=== PATIENT | female | born 1970 | race Caucasian/White ===

== ENCOUNTER → 2020-08-03 16:25 | Outpatient (CLI) | payer OTHER, SELFPAY ==
--- NOTE | ~2020-08-03 | XR_ITS ---
EXAMINATION: XR foot RT min 3V DATE: 08/03/2020 16:41 INDICATION: Pain at the plantar aspect of the heel of the right foot TECHNIQUE: Dorsoplantar, two oblique and lateral views of the right foot were obtained. COMPARISON: None. FINDINGS: Bone alignment is normal. No fracture. Plantar calcaneal spur and adjacent separate smoothly corticat ed triangular enthesopathic ossicle. Mild osteoarthritis at the first metatarsophalangeal joint. Lesli ining joint spaces are relatively preserved. Soft tissues are unremarkable. No right ankle joint effu elicia. IMPRESSION: 1. Plantar calcaneal spur and adjacent chronic enthesopathic ossicle. No acute osseous abnormality. Reviewed, dictated and finalized at location A. ER APPRENTICE ARC
== END ==
PROVIDERS: PCP Family Medicine; Visit Provider Family Medicine
DX: M77.31 Calcaneal spur, right foot (principal)
CPT/HCPCS: 73630

== ENCOUNTER → 2021-01-30 14:57 | Outpatient (CLI) | payer OTHER, SELFPAY ==
--- NOTE | ~2021-01-30 | MM_ITS ---
EXAMINATION: MM screening adri BI w tari HISTORY: Screening TECHNIQUE: Craniocaudal and mediolateral oblique 3-D tomosynthesis images were obtained and synthetic 2-D images were generated. CAD analysis was submitted and interpreted. COMPARISON: 09/09/2017 BREAST PARENCHYMAL COMPOSITION: There are scattered areas of fibroglandular density. FINDINGS: There is no evidence of suspicious mass, calcification, or architectural distortion to sugg est malignancy in either breast. There has been no suspicious interval change. IMPRESSION: 1. No mammographic evidence of malignancy. 2. Recommend routine screening mammography in one year. BI-RADS Category 1: Negative Reviewed, dictated and finalized at location A.
== END ==
PROVIDERS: PCP Family Medicine; Visit Provider Nurse Practitioner
DX: Z12.31 Encounter for screening mammogram for malignant neoplasm of breast (principal)
CPT/HCPCS: 77063; 77067

== ENCOUNTER → 2021-07-05 07:54 | Outpatient (CLI) | payer OTHER, SELFPAY ==
--- NOTE | ~2021-07-05 | DEXA_ITS ---
Bone Density Report Name: RA AUGUSTIN Age: 51 Sex: Female Ethnicity: White Date of : 1970 Indication: screening for osteoporosis; height loss; prior fracture; Referring Provider: ANGELO HYLTON Study: Bone densitometry was performed. Exam Date: July 05, 2021 Accession number: [id number] Bone Density: Region BMD T-score Z-score Classification AP Spine (L1-L4) 0.924 -1.1 -0.2 Osteopenia Femoral Neck (Left) 0.734 -1.0 -0.1 Normal Total Hip (Left) 0.923 -0.2 0.4 Normal Femoral Neck (Right) 0.734 -1.0 -0.2 Normal Total Hip (Right) 0.919 -0.2 0.4 Normal Total Hip Mean 0.921 -0.2 0.4 Normal World Health Organization criteria for BMD impression classify patients as: Normal (T-score at or above -1.0), Osteopenia (T-score between -1.0 and -2.5), or Osteoporosis (T-score at or below -2.5). 10-year Fracture Risk: FRAX not reported because: Premenopausal woman Clinical Information Provided by Patient: Has had a low trauma fracture Has used the following medications: Vitamin D Patient maximum height was 65.5 Drinks caffeinated beverages Onset of menses at age 12 Premenopausal Number of children 3 Missed period for more than 6 months in a row Impression: The patient's bone mass is within expected range for age, gender and ethnicity. The patient has risk factors, including: previous fracture. Discussion: BONE DENSITY IS WITHIN EXPECTED LIMITS FOR AGE, SEX AND RACE. Bone density is within expected limits for age, sex and race at all sites measured. The patient should follow a healthful lifestyle (good nutrition with adequate calcium and vitamin D, and appropriate weight-bearing exercise). Follow-Up: Consider repeating this study in 2 to 3 years to reassess this patient's status, or sooner if there is some new clinical indication. Reported by: GRECIA on 07/05/2021 8:16:00 AM. Reviewed, dictated and finalized at location AAbdifatah LAM
== END ==
PROVIDERS: PCP Family Medicine; Visit Provider Obstetrics & Gynecology Gynecology
DX: Z13.820 Encounter for screening for osteoporosis (principal); M85.88 Other specified disorders of bone density and structure, other site
CPT/HCPCS: 77080

== ENCOUNTER → 2021-09-15 15:39 | Outpatient (CLI) | payer OTHER, SELFPAY ==
--- NOTE | ~2021-09-15 | CT_ITS ---
EXAMINATION: CT soft tissue neck w con EXAM DATE: 09/15/2021 16:09 INDICATION: R22.1 - Localized swelling, mass and lump, neck TECHNIQUE: Spiral CT of the neck was performed following intravenous injection of 75 mL Omnipaque 350 . Axial, coronal and sagittal images were reviewed. The dose-length product (DLP) for this examinat ion was 429.50 mGy-cm. The exposure was tailored according to patient size (auto mA exposure control ), and iterative reconstruction (ASIR) was used as additional dose reduction technique. There is no prior study for comparison. FINDINGS: The thyroid gland is unremarkable. The submandibular and parotid glands are symmetric. There are 2 enlarged right internal jugular chain lymph nodes located just above and below the level of the hyoid, both measuring about 1.7 x 1.2 cm, mildly enlarged. Some very small hypodense regions w ithin this, possible small regions of necrosis. The superior mediastinum is unremarkable. The airw ay is unremarkable. Parapharyngeal and pre-glottic fat planes are preserved. The opacified vascul ature is patent. The orbits are unremarkable. Visualized sinuses and mastoid air cells are well a erated. Lung apices are clear. There is mild cervical spondylosis. IMPRESSION: Two mildly enlarged right internal jugular chain lymph nodes. Infection, granulomatous p rocess, cancer are in the differential diagnosis. Clinical correlation. If lymphadenopathy persists, histologic correlation should be considered. Reviewed, dictated and finalized at location . IMPRESSION: Two mildly enlarged right internal jugular chain lymph nodes. Infe ction, granulomatous process, cancer are in the differential diagnosis. Clinica l correlation. If lymphadenopathy persists, histologic correlation should be co nsidered.
== END ==
PROVIDERS: Visit Provider Family Medicine
DX: R22.1 Localized swelling, mass and lump, neck (principal)
CPT/HCPCS: 70491; Q9967

== ENCOUNTER → 2023-08-07 15:36 | Outpatient (CLI) | payer OTHER, SELFPAY ==
--- NOTE | ~2023-08-07 | MM_ITS ---
EXAMINATION: MM screening [facility] BI w tari HISTORY: Screening mammogram TECHNIQUE: Craniocaudal and mediolateral oblique 3-D tomosynthesis images were obtained and synthetic 2-D images were generated. CAD analysis was submitted and interpreted. COMPARISON: 01/30/2021, 09/09/2017 BREAST PARENCHYMAL COMPOSITION: There are scattered areas of fibroglandular density. FINDINGS: No suspicious mass, calcification, or architectural distortion are identified in either jeferson ast to suggest malignancy. There has been no suspicious interval change. IMPRESSION: 1. No mammographic evidence of malignancy. 2. Recommend routine screening mammography in one year. BI-RADS Category 1: Negative Reviewed, dictated and finalized at location A. ENGINEER
== END ==
PROVIDERS: PCP Nurse Practitioner; Visit Provider Nurse Practitioner
DX: Z12.31 Encounter for screening mammogram for malignant neoplasm of breast (principal)
CPT/HCPCS: 77063; 77067

== ENCOUNTER 2023-08-27 10:44 | Outpatient (CLI) | payer OTHER, SELFPAY ==
--- NOTE | ~2023-08-27 | XR_ITS ---
EXAMINATION: XR lumbar spine min 4V DATE: 08/27/2023 11:02 INDICATION: Low back pain TECHNIQUE: Anteroposterior, lateral, and bilateral oblique views of the lumbar spine, and cone-down l ateral view of the lumbosacral junction were obtained. COMPARISON: None. FINDINGS: Bone alignment is normal. There is no fracture. There is mild loss of intervertebral disc s pace height at L4-5. There is moderate loss of intervertebral disc space height at L5-S1. The vertebr al body heights are maintained. There is mild to moderate facet joint osteoarthritis in the mid and l ower lumbar spine. An IUD is noted. IMPRESSION: 1. Mild lumbar spondylosis without acute findings. Reviewed, dictated and finalized at location L. ING DEPARTMENT HELPER
== END 2023-08-27 10:45 ==
LOC: MICIMG 10:46
PROVIDERS: PCP Physician Assistant Medical; Visit Provider Physician Assistant Medical
DX: S39.012A Strain of muscle, fascia and tendon of lower back, initial encounter (principal); X58.XXXA Exposure to other specified factors, initial encounter; M47.896 Other spondylosis, lumbar region
CPT/HCPCS: 72110

== ENCOUNTER 2025-02-25 13:07 | Outpatient (CLI) | payer OTHER, SELFPAY ==
--- OUTSIDE RECORDS SUMMARY | 2025-02-18 11:00 | XMS_ITS ---
Author Organization [facility] [employer] [facility] Address [facility] [address] [address] Care Team Providers Care Manager Of Recruiting Name Role Phone Patrick PATEL, Candi Primary Care Provider Jennifer Meyer Unavailable [phone] Yani Rhodes [phone] REASON FOR VISIT 2 week follow up Social History Sex Assigned At : Social History Observation Description Sex Assigned At Female Encounters Encounter Location Date Provider Diagnosis [facility] [place] [id number] [facility] [address] [address] 02/18/2025 Yani Rhodes Plan Of Treatment Next Appt Details Provider Name:Jennifer mcmahon, 03/04/2025 02:30:00 PM, [facility], [address], [address], Progress Notes * RA AUGUSTIN MDOB:1970 (55 yo F)Acc No.[id number]:02/18/2025 Patient: Armida RA ERIC Provider: Allen RHODES LCSW :1970 A ge:54 Y S ex:Female Date:02/18/2025 Phone: Address:[address], [id number] Pcp:Candi Nguyen MD Data: * Chief Complaints: * 2 week follow up * Electronic signature of Dede Rhodes LCSW on 02/25/2025 at 01:17 PM CDT Sign off status: Pending Signatures: No Ad Hoc Signature Added * Provider: Allen RHODES LCSW Date: 0 02/18/2025 Generated for Marnie rhodes/Sharron/Arnaud on: 0 02/25/2025 01:17 PM CDT
--- OUTSIDE RECORDS SUMMARY | 2025-02-25 13:17 | XMS_ITS | Patient Health Record ---
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 Therapist actively listened to client and utilized a cogntive behavioral intervention to help client explore strategies to minimize startegies to minimize he anxiety. 02/04/2025 Other Start Wellbutrin 150mg daily for mood, adhd support Restart Vyvanse 30mg daily for adhd management, monitor for GI upset at lower dose Patient educated on all medications including potential benefits, side effects, risks. Educated on proper dosing schedule and importance of compliance. [place]MP report checked and consistent with prescription history, no controlled substance prescriptions from other providers. -Assessment and treatment plan reviewed with patient. -Compliance with treatment plan importance discussed. -Discussed the risks/benefits of this medication -Discussed medication side effects. -Contact office if symptoms worsen. -Discussed that it can take up to 6-8 weeks to see full therapeutic effects of psychotropic medications. -Crisis prevention hotline 888. Plan Of Treatment Next Appt Details Provider Name:Jennifer Jama lisandro, 03/04/2025 02:30:00 PM, [id number], [facility] [address], [place], [address], Insurance Providers Payer Name Payer Address Payer Phone Subscriber Number Group Number Insured Name Patient Relationship to Insured Coverage Start Date Coverage End Date [employer] [address] [place] [address] [id number] RA AUGUSTIN Self - patient is the insured Medical (General) History Medical History History ICD Code Problems: Posttraumatic stress disorder Severe depressed bipolar I disorder with out psychotic features abdominal aortic aneurysm: No atrial fibrillation: No chronic fatigue syndrome: No essential tremor: No hyperlipidemia: No hypertension: No Parkinson's disease: No restless leg syndrome: No stroke: No subdural hematoma: No type 1 diabetes mellitus: No type 2 diabetes mellitus: No vitamin B12 deficiency: No vitamin D deficiency: Yes 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
--- OUTSIDE RECORDS SUMMARY | 2025-02-25 13:17 | XMS_ITS | Clinical Summary ---
Author Organization [facility] Address Formerly [facility] [place] [address] Care Team Providers Care Radiology Receptionist Name Role Phone Cnadi Nguyen MD Primary Care Provider [phone] Allergies No known active allergies Medications magnesium carb,citrate,oxi de (Magnesium Complex) 300 mg magnesium tablet 1 Active estradioL (CLIMARA) 0.1 mg/[address] 1 patch on the skin 2 (two) times a week Active pantoprazole DR (PROTONIX) 40 mg EC tabletIndication s:Gastroesophage al reflux disease with esophagitis without hemorrhage TAKE 1 TABLET BY MOUTH TWICE A DAY BEFORE BREAKFAST AND DINNER 180 tablet 3 4 Active Additional Information Patient taking differently: 40 mg oral Daily, Reported on 08/26/2024 busPIRone (BUSPAR) 5 mg tabletIndication s:Generalized Anxiety Disorder Take 1 tablet (5 mg total) by mouth daily Active hydrOXYzine (ATARAX) 25 mg tablet Take 1 tablet (25 mg total) by mouth every 8 (eight) hours as needed for anxiety 5 Active Active Problems Problem Noted Date Diagnosed Date Dysphagia 02/28/2024 Gastroesophageal reflux disease without esophagi tis 01/02/2023 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 01/02/2022 Lymphadenopathy 09/27/2021 Major depressive disorder 07/07/2020 Generalized anxiety disorder 07/07/2020 Esophageal stricture 07/07/2020 Overview (07/07/2020): Added automatically from request for surgery [id number] Screening for colon cancer 07/07/2020 Overview (07/07/2020): Added automatically from request for surgery [id number] Resolved Problems Problem Noted Date Diagnosed Date Resolved Date Gastroesophageal reflux dise ase with esophagitis without hemorrhage 07/07/2020 5 Esophageal dysphagia 07/07/2020 025 Overview (07/07/2020): Added automatically from request for surgery [id number] Immunizations Immunization Administration Dates Next Due Influenza, Quadrivalent, Spl it, Preservative Free, Intramuscular 03/29/2022,05/04/2020,07/25/2017 Influenza, Trivalent, Preser vative Free, Intramuscular 07/22/2016 Pfizer SARS-CoV-2 Monovalent Vaccination (12+ Yrs) PURPLE 05/01/2021,08/29/2020,08/08/2020 ZOSTER Recombinant 07/07/2020,05/04/2020 Surgical History Surgery Date Site/Laterality Comments UPPER GASTROINTESTINAL ENDOSCOPY SECTION x2 TUBAL LIGATION SECTION 1995, 2000 Medical History Medical History Date Comments Nelson esophagus Dysphagia GERD (gastroesophageal reflux disease) Anxiety Depression Peptic ulceration 2017 Family History Medical History Relation Name Comments Alcohol abuse Brother 1 Lazarus Drug abuse Brother 1 Lazarus Learning disabilities Brother 1 Lazarus Alcohol abuse Brother 2 Chente defects Brother 2 Chente Drug abuse Brother 2 Chente Learning disabilities Brother 2 Chente Depression Daughter Edda Obesity Daughter Edda Alcohol abuse Father Humphrey Diabetes Father Humphrey Heart disease Father Humphrey Hypertension Father Humphrey Obesity Father Humphrey Skin cancer Father Humphrey Stroke Father Humphrey Alcohol abuse Maternal Grandfather [place] Heart attack Maternal Grandfather [place] Heart disease Maternal Grandfather January Early Mother Tg Heart attack Mother Gt Heart disease Mother Tg Miscarriages / Stillbirths Mother Tg Obesity Mother Tg Alcohol abuse Mother's Brother Doug Heart attack Paternal Grandfather Charlie Heart disease Paternal Grandfather Charlie Anemia Son Arben Developmental delay Son Arben Hypertension Son Arben Kidney disease Son Arben Learning disabilities Son Arben Polycystic kidney disease Son Arben Colon cancer Neg Hx Esophageal cancer Neg Hx Liver cancer Neg Hx Relation Name Status Comments Brother 1 Lazarus Brother 2 Chente Daughter Edda Father Humphrey Maternal Grandfather Clifford Mother Tg Mother's Brother Doug Paternal Grandfather Charlie Son Arben Other Social History Tobacco Use Types Packs/Day Years Used Date Smoking Tobacco: Former Cigarettes Q uit: 06/24/1999 Smokeless Tobacco: Never Tobacco Cessation:Counseling Given: Not Answered Alcohol Use Standard Drinks/Week Comments Yes 1 (1 standard drink = 0.6 oz pur e alcohol) AUDIT-C Answer Date Recorded Q1: How often do you have a drink containing alc ohol? 2-4 times a month 03/09/2024 Q2: How many drinks containi ng alcohol do you have on a typical day when you are drinking? 1 or 2 03/09/2024 Q3: How often do you have si x or more drinks on one occasion? Never 03/09/2024 Personal Safety Answer Date Recorded Have you ever been in or are you currently in a harmful physical or emotional relationship or is someone making you feel afraid or unsafe? Denies 03/09/2024 Comments No Sex and Gender Information Value Date Recorded Sex Assigned at Not on file Legal Sex Female 2:02 PM CDT Gender Identity Female 07/06/2020 9:29 AM EDITORIAL SPECIALIST Sexual Orientation Straight 07/06/2020 9: 29 AM EDITORIAL SPECIALIST Obstetrics History Last Filed Vital Signs Vital Sign Reading Time Taken Comments Blood Pressure 124/66 03/09/2024 10:41 AM CDT Pulse 81 03/09/2024 10:41 AM CDT Temperature 36 C (96.8 F) 03/09/2024 10:11 AM CDT Respiratory Rate 10 03/09/2024 10:41 AM CDT Oxygen Saturation 100% 03/09/2024 10:41 AM CDT Inhaled Oxygen Concentration - - Weight 81.6 kg (180 lb) 08/26/2024 8:30 AM EDITORIAL SPECIALIST Height 165.1 cm (5' 5) 03/09/2024 8:40 AM CDT Body Mass Index 29.95 03/09/2024 8:40 AM CDT Plan of Treatment Health Maintenance Due Date Last Done Comments Breast Cancer Screening-Mammogram 1970 Cervical Cancer Screening 1970 Depression Screening 1970 Hepatitis C Screening 1969 Hepatitis B Screening 1987 Regular Well Visit/Exam 18-64 1987 Influenza Vaccine (#1) 2025 , 04/03/2023, 03/29/2022, Additional history exists Colon Cancer Screening-Colonoscopy 07/15/2030 07/15/2020 DTaP/Tdap/Td Vaccine (2 - Td or Tdap) 03/12/2034 03/12/2024 Zoster Vaccine Completed 07/07/2020, 05/04/2020 Covid-19 Vaccine Completed 03/12/2024, 04/2023, 03/29/2022, Additional history exists Pneumococcal vaccine <65 Aged Out No longer eligible based on patient's age to complete this topic Procedures Procedure Name Priority Date/Time Associated Diagnosis Comments COLONOSCOPY 07/15/2020 12:49 PM EDITORIAL SPECIALIST from Last 3 Months or Most Recently Relevant to Health Maintenance Results * COLONOSCOPY (07/15/2020 12:49 PM EDITORIAL SPECIALIST) Anatomical Region Laterality Modality Other Narrative Procedure Note Jorge Purcell MD - 07/15/2020 12:49 PM [facility] Patient Name: Eloisa Carvalho Procedure Date: 07/15/2020 12:49 PM Date of : 1970 Admit Type: Outpatient Age: 50 Gender: Female Attending MD: Jorge Purcell M.D. Room: [facility] Note Status: Finalized Procedure: Colonoscopy Indications: Screening for colorectal malignant neoplasm, This is the patient's first colonoscopy Referring MD: Candi Nguyen MD Providers: Jorge Purcell M.D. Medicines: Monitored Anesthesia Care Complications: No immediate complications. Estimated Blood Loss: Estimated blood loss: none. Procedure: Pre-Anesthesia Assessment: - See the other procedure note for documentation ofthe pre-procedure assessment. - Immediately prior to administration ofmedications, the patient was re-assessed for adequacy to receive sedatives. - The risks and benefits of the procedure and the sedation options and risks were discussed with the patient. All questions were answered and informed consent was obtained. The benefits, risks and alternatives of theprocedure and sedation were discussed and informed consent was obtained. All questions were answered. Please referto the signed informed consent document in the medical record. The scope was passed under direct vision.The Colonoscope was introduced through the anus and advanced to the cecum, identified by appendiceal orifice and ileocecal valve. The colonoscopy was performed without difficulty. The patient toleratedthe procedure well. The quality of the bowel preparation was adequate. The quality of the bowel preparationwas evaluated using the BBPS ([place] Bowel Preparation Scale) with scores of: Right Colon = 2 (minor amountof residual staining, small fragments of stool and/or opaque liquid, but mucosa seen well), TransverseColon = 3 (entire mucosa seen well with no residualstaining, small fragments of stool or opaque liquid) and Left Colon = 3 (entire mucosa seen well with no residual staining, small fragments of stool or opaqueliquid). The total BBPS score equals 8. The bowel preparation used was SUPREP. Findings: The perianal and digital rectal examinations were normal. Pertinent negatives include no palpable rectal lesions. The entire examined colon appeared normal on direct and retroflexion views. Impression: - The entire examined colon is normal on direct and retroflexion views. - No specimens collected. Recommendation: - Repeat colonoscopy in 10 years for screeningpurposes. - Return to clinic with me as previouslyscheduled. Attending Participation: I personally performed the entire procedure. Electronically signed by Jorge Purcell MD Jorge Purcell M.D. 07/15/2020 1:12:33 PM . Number of Addenda: 0 Note Initiated On: 07/15/2020 12:49 PM Recognized by the [place] [employer] for promoting quality in endoscopy us Jorge Owens MD ENDOSCOPY PROCEDURES Final Res ult from Last 3 Months or Most Recently Relevant to Health Maintenance Insurance [facility] [employer] H[employer] [facility] Advance Directives For more information, please contact: [phone] * Full Code (Latest Code Status on File) Date Activated Date Inactivated Comments 11/01/2022 9:03 AM 11/01/2022 2:29 PM * Full Code Date Activated Date Inactivated Comments 07/15/2020 11:32 AM 07/15/2020 6:00 PM Care Teams Radiology Receptionist Relationship Specialty Start Date End Date Candi Nguyen MD PCP - General Family Medicine 03/31/20
[2025-02-25 14:28] LABS: Influenza A QL RT-PCR Negative (Negative); Influenza B QL RT-PCR Negative (Negative); RSV RNA, RT-PCR Negative (Negative); SARS-CoV-2 RNA PCR Negative (Negative)
== END 2025-02-25 13:08 | disposition home or self-care (01) ==
LOC: ANHLAB 13:10
PROVIDERS: PCP Family Medicine; Visit Provider Family Medicine
DX: J06.9 Acute upper respiratory infection, unspecified (principal); Z20.822 Contact with and (suspected) exposure to COVID-19
CPT/HCPCS: 87637